=== PATIENT | male | born 1930 | race Caucasian/White ===

== ENCOUNTER 2021-01-26 11:59 | Inpatient (IN) | payer MEDICARE ==
[2021-01-26] MEDS ORDERED: Heparin 1,000 UNITS/ML VIAL ONE (12:43)
[2021-01-26 17:51] VITALS: BMI 23.6
[2021-01-26] MEDS ORDERED: hydrALAZINE 20 MG/ML VIAL SLOW IVP PRN (17:56)
[2021-01-26] MEDS ORDERED: Morphine 2 MG/ML VIAL SLOW IVP PRN (17:56)
[2021-01-26] MEDS ORDERED: Ondansetron ODT 4 MG TAB PO PRN (17:56)
[2021-01-26] MEDS ORDERED: Cyclobenzaprine 10 MG TAB PO PRN (17:59)
[2021-01-26] MEDS ORDERED: traMADol HCl 50 MG TAB PO PRN (17:59)
[2021-01-26] MEDS ORDERED: Furosemide 20 MG/2 ML VIAL SLOW IVP SCH ×2 (18:30→19:36)
[2021-01-26 18:33] LABS: #Lymphocytes 0.8 thou/uL (1.20-3.40); #Monocytes 0.7 thou/uL (0.11-0.59); #Neutrophils 4.4 thou/uL (1.40-6.50); %Basophils 0.6 % (0.0-1.0); %Eosinophils 0.6 % (0.0-10.0); %Lymphocytes 12.8 % (21.0-51.0); Hemoglobin 8.5 g/dL (14.0-18.0); Mean Corpuscular HGB CONC 33.2 g/dL (32.0-36.0); Mean Corpuscular Hemoglobin 35.6 pg (27.0-31.0); Mean Platelet Volume 6.4 fL (7.4-10.4); Platelet Count 290 thou/uL (130-400); RBC Distribution Width 11.9 % (11.5-14.5); Red Blood Cell (RBC) Count 2.38 mill/uL (4.70-6.10); White Blood Cell (WBC) Count 5.9 thou/uL (4.8-10.8)
[2021-01-26 18:37] LABS: Anion Gap 9 mmol/L (10-20); BUN (Urea Nitrogen) 22 mg/dL (8.4-25.7); CK (CPK) 27 U/L (30-200); Calc. Creatinine Clearance 43 mL/min (70-130); Carbon Dioxide 25 mmol/L (23-31); Chloride 102 mmol/L (98-107); Glucose 99 mg/dL (83-110); Magnesium 2.2 mg/dL (1.6-2.6); Phosphorus 2.5 mg/dL (2.3-4.7); Potassium 4.2 mmol/L (3.5-5.1); Sodium 132 mmol/L (136-145)
[2021-01-26 18:38] LABS: INR-International Normal Ratio 1.4
[2021-01-26 18:39] LABS: PTT 40.8 sec (22.9-36.1)
[2021-01-26] MEDS ORDERED: Ibuprofen 200 MG TAB PO PRN (18:47)
[2021-01-26 18:50] LABS: MDiff Complete? YES; Macrocytosis SLIGHT = 6-15 cells (100X) (0-5/hpf); Platelet Morphology Comment Appears Adequate
[2021-01-26] MEDS: Gabapentin 100 MG CAP PO SCH (20:18)
[2021-01-26] MEDS: Acetaminophen 325 MG TAB PO SCH (20:25)
[2021-01-26] MEDS: traMADol HCl 50 MG TAB PO SCH (20:25)
[2021-01-27] MEDS: traMADol HCl 50 MG TAB PO SCH ×4 (00:10→17:26)
[2021-01-27] MEDS: Acetaminophen 325 MG TAB PO SCH ×4 (00:11→17:26)
[2021-01-27] MEDS: Gabapentin 100 MG CAP PO SCH ×3 (08:35→20:45)
[2021-01-27] MEDS ORDERED: Famotidine 20 MG TAB PO SCH (09:00)
[2021-01-27] MEDS: Multivitamin W/ Minerals 1 TAB PO SCH (09:31)
[2021-01-27] MEDS: Ferrous Sulfate 325 MG TAB PO SCH (17:19)
[2021-01-27] MEDS ORDERED: Hydrocortisone Sod Succ/PF 100 mg/2 ml Vial IVP SCH (17:30)
[2021-01-27 18:00] LABS: Bacteria/HPF 3+ HPF (None Seen); Bilirubin Negative (Negative); Blood, Urine 3+ (Negative); Clarity Turbid (Clear); Glucose, Urine (Dipstick) Normal (Negative); Ketone, Urine Negative (Negative); Leukocyte 250 Leu/uL (Negative); Nitrite Negative (Negative); Protein, Urine (Dipstick) 30 mg/dL (Neg-Trace); RBC/HPF Greater than 50 HPF (0-3); Renal Epithelial 0-3 HPF (None Seen); Specific Gravity, Urine 1.033 (1.002-1.036); Squamous Epithelial 0-3 HPF (0-3); WBC/HPF Greater than 50 HPF (0-3); pH, Urine 5.5 (5.0-9.0)
[2021-01-27 18:04] LABS: Urine Culture Reflex Yes Yes
[2021-01-27] MEDS: Ascorbic Acid 500 mg Chewable Tablet PO SCH (20:45)
[2021-01-28] MEDS: Acetaminophen 325 MG TAB PO SCH ×4 (00:52→17:17)
[2021-01-28] MEDS: traMADol HCl 50 MG TAB PO SCH ×5 (00:52→23:49)
[2021-01-28] MEDS: Hydrocortisone Sod Succ/PF 100 mg/2 ml Vial IVP SCH ×3 (02:03→17:17)
[2021-01-28 05:55] LABS: #Lymphocytes 0.5 thou/uL (1.20-3.40); #Monocytes 0.1 thou/uL (0.11-0.59); #Neutrophils 4.7 thou/uL (1.40-6.50); %Eosinophils 0.1 % (0.0-10.0); %Lymphocytes 9.5 % (21.0-51.0); %Monocytes 2.6 % (0.0-10.0); %Neutrophils 87.8 % (42.0-75.0); Hemoglobin 9.4 g/dL (14.0-18.0); Mean Corpuscular HGB CONC 33.5 g/dL (32.0-36.0); Mean Corpuscular Hemoglobin 36.3 pg (27.0-31.0); Mean Platelet Volume 6.8 fL (7.4-10.4); Platelet Count 258 thou/uL (130-400); White Blood Cell (WBC) Count 5.3 thou/uL (4.8-10.8)
[2021-01-28 06:16] LABS: Anion Gap 12 mmol/L (10-20); BUN (Urea Nitrogen) 22 mg/dL (8.4-25.7); Calc. Creatinine Clearance 42 mL/min (70-130); Calcium 9.1 mg/dL (7.8-10.44); Carbon Dioxide 24 mmol/L (23-31); Chloride 103 mmol/L (98-107); Glucose 170 mg/dL (83-110); Magnesium 2.2 mg/dL (1.6-2.6); Phosphorus 3.7 mg/dL (2.3-4.7); Potassium 5.4 mmol/L (3.5-5.1); Sodium 134 mmol/L (136-145)
[2021-01-28] MEDS: Ferrous Sulfate 325 MG TAB PO SCH ×3 (08:12→21:02)
[2021-01-28] MEDS: Ascorbic Acid 500 mg Chewable Tablet PO SCH ×2 (08:13→21:01)
[2021-01-28] MEDS: Furosemide 20 MG TAB PO SCH (08:13)
[2021-01-28] MEDS: Pregabalin 50 MG CAP PO SCH ×2 (08:13→21:01)
[2021-01-28] MEDS: Multivitamin W/ Minerals 1 TAB PO SCH (08:13)
[2021-01-28] MEDS ORDERED: Enoxaparin Sodium 40 MG/0.4 ML SYRINGE SC SCH ×2 (09:00)
[2021-01-28] MEDS ORDERED: Furosemide 20 MG TAB PO SCH (09:00)
[2021-01-28 17:44] LABS: Anion Gap 10 mmol/L (10-20); BUN (Urea Nitrogen) 24 mg/dL (8.4-25.7); Calc. Creatinine Clearance 41 mL/min (70-130); Carbon Dioxide 27 mmol/L (23-31); Chloride 101 mmol/L (98-107); Glucose 145 mg/dL (83-110); Sodium 134 mmol/L (136-145)
[2021-01-28] MEDS ORDERED: traMADol HCl 50 MG TAB PO PRN (18:09)
[2021-01-28] MEDS ORDERED: Sodium Chloride 0.9% 500 ML IV SCH (18:15)
[2021-01-28] MEDS: Heparin 5,000 UNITS/ML VIAL SC SCH (21:00)
[2021-01-28] MEDS: Tamsulosin HCl 0.4 MG CAP PO SCH (21:01)
[2021-01-29] MEDS: Acetaminophen 325 MG TAB PO SCH ×4 (02:56→17:20)
[2021-01-29] MEDS: Hydrocortisone Sod Succ/PF 100 mg/2 ml Vial IVP SCH ×3 (03:00→17:20)
[2021-01-29] MEDS: traMADol HCl 50 MG TAB PO SCH ×2 (05:27→12:04)
[2021-01-29 06:01] LABS: Anion Gap 12 mmol/L (10-20); BUN (Urea Nitrogen) 23 mg/dL (8.4-25.7); Calc. Creatinine Clearance 39 mL/min (70-130); Calcium 8.9 mg/dL (7.8-10.44); Carbon Dioxide 24 mmol/L (23-31); Chloride 102 mmol/L (98-107); Glucose 137 mg/dL (83-110); Magnesium 2.1 mg/dL (1.6-2.6); Phosphorus 3.3 mg/dL (2.3-4.7); Potassium 4.3 mmol/L (3.5-5.1); Sodium 134 mmol/L (136-145)
[2021-01-29] MEDS: Furosemide 20 MG TAB PO SCH ×2 (08:44→21:03)
[2021-01-29] MEDS: Senokot S 8.6-50 MG TAB PO SCH ×2 (08:44→21:01)
[2021-01-29] MEDS: Polyethylene Glycol 3350 17 GM Packet PO SCH (08:44)
[2021-01-29] MEDS: Multivitamin W/ Minerals 1 TAB PO SCH (08:45)
[2021-01-29] MEDS: Ascorbic Acid 500 mg Chewable Tablet PO SCH ×2 (08:45→21:02)
[2021-01-29] MEDS: Heparin 5,000 UNITS/ML VIAL SC SCH ×3 (08:46→21:01)
[2021-01-29] MEDS: Pregabalin 50 MG CAP PO SCH ×2 (08:47→21:04)
[2021-01-29] MEDS: Ferrous Sulfate 325 MG TAB PO SCH ×2 (08:47→21:02)
[2021-01-29] MEDS: cefTRIAXone\\ROCEPHIN 2 GM in Sodium Chloride 0.9% 100 ML IVPB SCH (11:58)
[2021-01-29] MEDS: Vancomycin 1 GM in Premix Bag 1 BAG IVPB SCH (12:02)
[2021-01-29] MEDS: Acetaminophen/Codeine 30-300mg Tablet PO SCH ×2 (13:45→21:03)
[2021-01-29] MEDS: Tamsulosin HCl 0.4 MG CAP PO SCH (21:02)
[2021-01-30] MEDS: Acetaminophen 325 MG TAB PO SCH ×4 (00:33→17:41)
[2021-01-30] MEDS: Hydrocortisone Sod Succ/PF 100 mg/2 ml Vial IVP SCH ×3 (02:26→17:40)
[2021-01-30] MEDS: Acetaminophen/Codeine 30-300mg Tablet PO SCH ×4 (02:28→22:04)
[2021-01-30 08:19] LABS: Anion Gap 11 mmol/L (10-20); BUN (Urea Nitrogen) 25 mg/dL (8.4-25.7); Calc. Creatinine Clearance 39 mL/min (70-130); Calcium 9.2 mg/dL (7.8-10.44); Carbon Dioxide 27 mmol/L (23-31); Chloride 101 mmol/L (98-107); Glucose 131 mg/dL (83-110); Magnesium 2.1 mg/dL (1.6-2.6); Phosphorus 3.1 mg/dL (2.3-4.7); Potassium 5.9 mmol/L (3.5-5.1); Sodium 133 mmol/L (136-145)
[2021-01-30] MEDS ORDERED: Furosemide 20 MG TAB PO SCH (10:00)
[2021-01-30] MEDS: Multivitamin W/ Minerals 1 TAB PO SCH (10:24)
[2021-01-30] MEDS: Saccharomyces boulardii 250 MG CAP PO SCH (10:25)
[2021-01-30] MEDS: Pregabalin 50 MG CAP PO SCH (10:25)
[2021-01-30] MEDS: Ascorbic Acid 500 mg Chewable Tablet PO SCH ×2 (10:26→22:04)
[2021-01-30] MEDS: Ferrous Sulfate 325 MG TAB PO SCH (10:26)
[2021-01-30] MEDS: Heparin 5,000 UNITS/ML VIAL SC SCH ×3 (10:27→22:04)
[2021-01-30] MEDS: Senokot S 8.6-50 MG TAB PO SCH ×2 (10:27→22:04)
[2021-01-30] MEDS: Dutasteride 0.5 MG CAP PO SCH (10:30)
[2021-01-30 11:02] LABS: Anion Gap 15 mmol/L (10-20); BUN (Urea Nitrogen) 26 mg/dL (8.4-25.7); Calc. Creatinine Clearance 39 mL/min (70-130); Calcium 9.3 mg/dL (7.8-10.44); Carbon Dioxide 23 mmol/L (23-31); Chloride 100 mmol/L (98-107); Glucose 123 mg/dL (83-110); Potassium 5.4 mmol/L (3.5-5.1); Sodium 133 mmol/L (136-145)
[2021-01-30] MEDS: Furosemide 20 MG TAB PO SCH (11:22)
[2021-01-30] MEDS: cefTRIAXone\\ROCEPHIN 2 GM in Sodium Chloride 0.9% 100 ML IVPB SCH (12:37)
[2021-01-30] MEDS ORDERED: Dextrose 50% Abboject 50 ML SYRINGE SLOW IVP STA (13:19)
[2021-01-30] MEDS ORDERED: Insulin Regular 300 UNITS/3 ML VIAL IVP STA (13:19)
[2021-01-30] MEDS ORDERED: Sodium Chloride 0.9% 1,000 ML IV SCH (14:00)
[2021-01-30] MEDS: Vancomycin 1 GM in Premix Bag 1 BAG IVPB SCH (15:29)
[2021-01-30] MEDS: Sodium Chloride 0.9% 1,000 ML IV SCH (19:30)
[2021-01-30] MEDS ORDERED: Lactated Ringer's 1,000 ML IV SCH (20:00)
[2021-01-30] MEDS: Tamsulosin HCl 0.4 MG CAP PO SCH (22:04)
[2021-01-31] MEDS: Acetaminophen 325 MG TAB PO SCH ×4 (00:21→17:18)
[2021-01-31] MEDS: Acetaminophen/Codeine 30-300mg Tablet PO SCH ×4 (02:10→22:08)
[2021-01-31] MEDS: Hydrocortisone Sod Succ/PF 100 mg/2 ml Vial IVP SCH ×3 (02:11→17:18)
[2021-01-31 06:31] LABS: Anion Gap 9 mmol/L (10-20); BUN (Urea Nitrogen) 26 mg/dL (8.4-25.7); Calc. Creatinine Clearance 42 mL/min (70-130); Carbon Dioxide 27 mmol/L (23-31); Chloride 101 mmol/L (98-107); Glucose 117 mg/dL (83-110); Magnesium 2.1 mg/dL (1.6-2.6); Sodium 133 mmol/L (136-145)
[2021-01-31] MEDS: Heparin 5,000 UNITS/ML VIAL SC SCH ×3 (10:14→22:09)
[2021-01-31] MEDS: Multivitamin W/ Minerals 1 TAB PO SCH (10:14)
[2021-01-31] MEDS: Polyethylene Glycol 3350 17 GM Packet PO SCH (10:14)
[2021-01-31] MEDS: Saccharomyces boulardii 250 MG CAP PO SCH (10:15)
[2021-01-31] MEDS: Ascorbic Acid 500 mg Chewable Tablet PO SCH ×2 (10:15→22:09)
[2021-01-31] MEDS: Senokot S 8.6-50 MG TAB PO SCH ×2 (10:15→22:54)
[2021-01-31] MEDS: Furosemide 20 MG TAB PO SCH (10:15)
[2021-01-31] MEDS: Dutasteride 0.5 MG CAP PO SCH (10:20)
[2021-01-31] MEDS: cefTRIAXone\\ROCEPHIN 2 GM in Sodium Chloride 0.9% 100 ML IVPB SCH (12:05)
[2021-01-31] MEDS: Vancomycin 1 GM in Premix Bag 1 BAG IVPB SCH (14:37)
[2021-01-31] MEDS: Sodium Chloride 0.9% 1,000 ML IV SCH (18:35)
[2021-01-31] MEDS: Tamsulosin HCl 0.4 MG CAP PO SCH (22:09)
[2021-02-01] MEDS: Acetaminophen 325 MG TAB PO SCH ×4 (00:30→17:25)
[2021-02-01] MEDS: Sodium Chloride 0.9% 1,000 ML IV SCH ×2 (00:32→06:00)
[2021-02-01] MEDS: Hydrocortisone Sod Succ/PF 100 mg/2 ml Vial IVP SCH ×3 (02:10→17:22)
[2021-02-01] MEDS: Acetaminophen/Codeine 30-300mg Tablet PO SCH ×4 (03:17→20:46)
[2021-02-01 06:12] LABS: Anion Gap 10 mmol/L (10-20); BUN (Urea Nitrogen) 26 mg/dL (8.4-25.7); Calc. Creatinine Clearance 40 mL/min (70-130); Carbon Dioxide 26 mmol/L (23-31); Chloride 101 mmol/L (98-107); Sodium 132 mmol/L (136-145)
[2021-02-01 06:13] LABS: Glucose 131 mg/dL (83-110)
[2021-02-01] MEDS: Senokot S 8.6-50 MG TAB PO SCH ×2 (08:39→20:46)
[2021-02-01] MEDS: Ascorbic Acid 500 mg Chewable Tablet PO SCH ×2 (08:40→20:46)
[2021-02-01] MEDS: Multivitamin W/ Minerals 1 TAB PO SCH (08:40)
[2021-02-01] MEDS: Heparin 5,000 UNITS/ML VIAL SC SCH ×3 (08:40→20:53)
[2021-02-01] MEDS: Dutasteride 0.5 MG CAP PO SCH (08:40)
[2021-02-01] MEDS: Saccharomyces boulardii 250 MG CAP PO SCH (08:40)
[2021-02-01] MEDS: Polyethylene Glycol 3350 17 GM Packet PO SCH (08:41)
[2021-02-01] MEDS: cefTRIAXone\\ROCEPHIN 2 GM in Sodium Chloride 0.9% 100 ML IVPB SCH (10:50)
[2021-02-01] MEDS: Vancomycin 1 GM in Premix Bag 1 BAG IVPB SCH (12:37)
[2021-02-01] MEDS ORDERED: Sodium Chloride 0.9% 500 ML IV SCH (17:30)
[2021-02-01] MEDS: Tamsulosin HCl 0.4 MG CAP PO SCH (20:46)
[2021-02-02] MEDS: Acetaminophen 325 MG TAB PO SCH ×3 (00:37→11:02)
[2021-02-02] MEDS: Hydrocortisone Sod Succ/PF 100 mg/2 ml Vial IVP SCH ×2 (01:14→08:54)
[2021-02-02] MEDS: Acetaminophen/Codeine 30-300mg Tablet PO SCH ×3 (03:02→14:38)
[2021-02-02 06:02] LABS: Anion Gap 8 mmol/L (10-20); BUN (Urea Nitrogen) 23 mg/dL (8.4-25.7); Calc. Creatinine Clearance 46 mL/min (70-130); Carbon Dioxide 26 mmol/L (23-31); Chloride 102 mmol/L (98-107); Glucose 127 mg/dL (83-110); Magnesium 2.2 mg/dL (1.6-2.6); Phosphorus 2.8 mg/dL (2.3-4.7); Sodium 132 mmol/L (136-145)
[2021-02-02] MEDS: Dutasteride 0.5 MG CAP PO SCH (08:06)
[2021-02-02] MEDS: Ascorbic Acid 500 mg Chewable Tablet PO SCH (08:06)
[2021-02-02] MEDS: Saccharomyces boulardii 250 MG CAP PO SCH (08:06)
[2021-02-02] MEDS: Heparin 5,000 UNITS/ML VIAL SC SCH ×2 (08:06→14:38)
[2021-02-02] MEDS: Senokot S 8.6-50 MG TAB PO SCH (08:06)
[2021-02-02] MEDS: Multivitamin W/ Minerals 1 TAB PO SCH (08:06)
[2021-02-02] MEDS: Polyethylene Glycol 3350 17 GM Packet PO SCH (08:08)
[2021-02-02] MEDS: Furosemide 20 MG TAB PO SCH (08:09)
[2021-02-02] MEDS ORDERED: Aspirin 81 mg Enteric Coated Tablet PO SCH (09:00)
[2021-02-02] MEDS: cefTRIAXone\\ROCEPHIN 2 GM in Sodium Chloride 0.9% 100 ML IVPB SCH (11:02)
[2021-02-02 11:45] VITALS: BP 117/71; TEMP 97.7
[2021-02-02 13:36] LABS: Vancomycin, Trough 13.7 ug/mL
[2021-02-02] MEDS ORDERED: VANCOMYCIN 1.25 GM/250 ML BAG 1.25 GM in Premix Bag 1 BAG IVPB SCH (14:00)
[2021-02-02] MEDS: Vancomycin 1 GM in Premix Bag 1 BAG IVPB SCH (14:09)
== END 2021-02-02 14:48 | DRG 539 ==
LOC: SURG B 17:28
PROVIDERS: ADMIT Orthopaedic Surgery; ATTEND Surgery
PROC: 0T9B70Z Drainage of Bladder with Drainage Device, Via Natural or Artificial Opening (ICD-10-PCS; 2021-01-26)
PROC: 05H633Z Insertion of Infusion Device into Left Subclavian Vein, Percutaneous Approach (ICD-10-PCS; principal; 2021-01-29)
PROC: B5171ZA Fluoroscopy of Left Subclavian Vein using Low Osmolar Contrast, Guidance (ICD-10-PCS; 2021-01-29)
PROC: B547ZZA Ultrasonography of Left Subclavian Vein, Guidance (ICD-10-PCS; 2021-01-29)
DX: M46.26 Osteomyelitis of vertebra, lumbar region (principal); I50.23 Acute on chronic systolic (congestive) heart failure; N17.9 Acute kidney failure, unspecified; C95.91 Leukemia, unspecified, in remission; N39.0 Urinary tract infection, site not specified; Z20.822 Contact with and (suspected) exposure to COVID-19; E87.5 Hyperkalemia; I48.91 Unspecified atrial fibrillation; M48.061 Spinal stenosis, lumbar region without neurogenic claudication; R33.9 Retention of urine, unspecified; B96.20 Unspecified Escherichia coli [E. coli] as the cause of diseases classified elsewhere; M46.46 Discitis, unspecified, lumbar region; I08.3 Combined rheumatic disorders of mitral, aortic and tricuspid valves; Z79.899 Other long term (current) drug therapy; Z98.890 Other specified postprocedural states; Z88.0 Allergy status to penicillin; Z91.81 History of falling
CPT/HCPCS: 36415; 36569; 71045; 72131; 72158; 72195; 80048; 80202; 81001; 82533; 82550; 83735; 83880; 84100; 85025; 85610; 85730; 86140; 86850; 86900; 86901; 87040; 87077; 87086; 87186; 93306; C1751; J0696; J1644; J1650; J1720; J1815; J1940; J2270; J3370; J3490; J7030; J7050; P9045

== ENCOUNTER 2021-02-08 15:00 | Outpatient (CLI) | payer MEDICARE | END 2021-02-08 15:01 | disposition home or self-care (01) | LOC: ULT 15:00 | PROVIDERS: ATTEND Family Medicine | DX: Z03.89 Encounter for observation for other suspected diseases and conditions ruled out (principal); R60.0 Localized edema | CPT/HCPCS: 93970 ==

== ENCOUNTER → 2021-02-10 | Day surgery (SDC) | payer MEDICARE ==
[~2021-02-10] MED LIST: Heparin 1,000 UNITS/ML VIAL ONE
== END ==
LOC: SPEC 09:00
PROVIDERS: ATTEND Family Medicine
PROC: 02HV33Z Insertion of Infusion Device into Superior Vena Cava, Percutaneous Approach (ICD-10-PCS; principal; 2021-02-10)
DX: M86.9 Osteomyelitis, unspecified (principal); I82.291 Chronic embolism and thrombosis of other thoracic veins; I82.612 Acute embolism and thrombosis of superficial veins of left upper extremity; I82.622 Acute embolism and thrombosis of deep veins of left upper extremity; Z88.0 Allergy status to penicillin
CPT/HCPCS: 36569; C1751; J1644

== ENCOUNTER 2021-02-11 11:08 | Inpatient (IN) | payer MEDICARE ==
[2021-02-11] MEDS ORDERED: methylPREDNISolone Sod Succ/PF 125 MG/2 ML VIAL ONE (11:38)
[2021-02-11] MEDS ORDERED: Famotidine/PF 20 mg/2ml Vial ONE (11:38)
[2021-02-11] MEDS ORDERED: diphenhydrAMINE 50 MG/ML VIAL ONE (11:38)
[2021-02-11] MEDS ORDERED: EPINEPHrine 1 MG/10 ML Abboject SYRINGE ONE (11:38)
[2021-02-11] MEDS ORDERED: Norepinephrine 8 MG/0.9% NS 250 ML ONE (12:05)
[2021-02-11 12:45] LABS: Hemoglobin 9.5 g/dL (14.0-18.0); Mean Corpuscular HGB CONC 30.9 g/dL (32.0-36.0); Mean Corpuscular Hemoglobin 33.7 pg (27.0-31.0); Mean Platelet Volume 6.5 fL (7.4-10.4); Platelet Count 233 thou/uL (130-400); RBC Distribution Width 13.8 % (11.5-14.5); Red Blood Cell (RBC) Count 2.81 mill/uL (4.70-6.10); White Blood Cell (WBC) Count 15.9 thou/uL (4.8-10.8)
[2021-02-11 12:52] LABS: INR-International Normal Ratio 1.3; Prothrombin Time 15.9 sec (12.0-14.7)
[2021-02-11 13:00] LABS: Band 11 % (5-11); Eosinophils 2 % (0-10); Lymphocytes 6 % (21-51); MDiff Complete? YES; Macrocytosis SLIGHT = 6-15 cells (100X) (0-5/hpf); Monocytes 1 % (0-10); Neutrophil 79 % (42-75); Ovalocytes SLIGHT = 2-5 cells (100X) (0-1/hpf); Platelet Morphology Comment Appears Adequate; Polychromasia SLIGHT = 2-3 cells (100X) (0-2/hpf); Reactive Lymphocytes 1 % (0-10)
[2021-02-11 13:06] LABS: ALT (SGPT) 15 U/L (8-55); AST (SGOT) 26 U/L (5-34); Albumin 2.3 g/dL (3.4-4.8); Alkaline Phosphatase 245 U/L (40-110); Anion Gap 12 mmol/L (10-20); BUN (Urea Nitrogen) 31 mg/dL (8.4-25.7); Bilirubin, Total 0.6 mg/dL (0.2-1.2); CRP (Inflammatory) 14.97 mg/dL (= or < 0.5); Calc. Creatinine Clearance 0 mL/min (70-130); Calcium 8.4 mg/dL (7.8-10.44); Carbon Dioxide 23 mmol/L (23-31); Chloride 103 mmol/L (98-107); Globulin 2.5 g/dL (2.4-3.5); Glucose 82 mg/dL (83-110); Potassium 4.2 mmol/L (3.5-5.1); Protein, Total 4.8 g/dL (5.8-8.1); Sodium 134 mmol/L (136-145)
[2021-02-11] MEDS ORDERED: Cefepime 2 GM VIAL ONE (13:08)
[2021-02-11 13:22] LABS: CKMB 5.1 ng/mL (0-6.6)
[2021-02-11 14:35] LABS: Bilirubin Negative (Negative); Blood, Urine Negative (Negative); Clarity Clear (Clear); Glucose, Urine (Dipstick) Normal (Negative); Ketone, Urine Trace mg/dL (Negative); Leukocyte Negative Leu/uL (Negative); Nitrite Negative (Negative); Protein, Urine (Dipstick) 20 mg/dL (Neg-Trace); Specific Gravity, Urine 1.035 (1.002-1.036); Urobilinogen Normal mg/dL (Less than 2)
[2021-02-11] MEDS ORDERED: Norepinephrine 8 MG/0.9% NS 250 ML IVPB PRN (14:46)
[2021-02-11 15:27] LABS: Lactic Acid 1.7 mmol/L (0.5-2.2)
[2021-02-11] MEDS ORDERED: Dextrose 5 % And 0.9 % NaCl 1,000 ML IV SCH (15:30)
[2021-02-11] MEDS ORDERED: Acetaminophen 325 MG/10.15 ML UDCUP PO PRN (15:31)
[2021-02-11] MEDS ORDERED: Electrolyte Replacement Protocol 1 EACH IVPB ONE (15:31)
[2021-02-11] MEDS ORDERED: Ondansetron PF 4 MG/2 ML Vial IVP PRN (15:31)
[2021-02-11] MEDS ORDERED: Bisacodyl 10 MG SUPP PR PRN (15:31)
[2021-02-11] MEDS ORDERED: Calcium Carbonate 500 MG ChewTAB PO PRN (15:38)
[2021-02-11] MEDS ORDERED: Ondansetron ODT 4 MG TAB PO PRN (15:38)
[2021-02-11 16:03] LABS: SARS-CoV-2 NAA Rapid Test Not Detected (NotDetected)
[2021-02-11] MEDS ORDERED: Aspirin 81 mg Enteric Coated Tablet PO SCH (16:40)
[2021-02-11] MEDS ORDERED: Electrolyte Replacement Protocol FS PRN (17:00)
[2021-02-11] MEDS ORDERED: DAPTOmycin 500 MG VIAL SLOW IVP SCH (17:00)
[2021-02-11 17:36] LABS: Troponin I 0.127 ng/mL (< 0.028)
[2021-02-11] MEDS ORDERED: Aspirin Chewable 81 MG TAB ONE (17:39)
[2021-02-11] MEDS ORDERED: traMADol HCl 50 MG TAB PO PRN (17:43)
[2021-02-11] MEDS: Albumin 25% 25 GM/100 ML BOT IVPB SCH (17:58)
[2021-02-11] MEDS: Dextrose 5 % And 0.9 % NaCl 1,000 ML IV SCH (17:59)
[2021-02-11] MEDS: DAPTOmycin 500 MG in Sodium Chloride 0.9% 100 ML IVPB SCH (18:00)
[2021-02-11 18:03] LABS: Phosphorus 3.7 mg/dL (2.3-4.7)
[2021-02-11 18:05] LABS: Anion Gap 14 mmol/L (10-20); BUN (Urea Nitrogen) 31 mg/dL (8.4-25.7); Calc. Creatinine Clearance 0 mL/min (70-130); Calcium 8.9 mg/dL (7.8-10.44); Carbon Dioxide 19 mmol/L (23-31); Chloride 104 mmol/L (98-107); Glucose 105 mg/dL (83-110); Potassium 5.1 mmol/L (3.5-5.1); Sodium 132 mmol/L (136-145)
[2021-02-11] MEDS ORDERED: Magnesium 2 GM/50 ML 2 GM in Premix Bag 1 BAG IVPB SCH (21:00)
[2021-02-11 21:07] LABS: Troponin I 0.115 ng/mL (< 0.028)
[2021-02-11] MEDS ORDERED: Albumin 25% 25 GM/100 ML BOT IVPB SCH (22:00)
[2021-02-11] MEDS: Aztreonam 1 GM in Sodium Chloride 0.9% 100 ML IVPB SCH (22:09)
[2021-02-11] MEDS: Senokot S 8.6-50 MG TAB PO SCH (22:10)
[2021-02-11] MEDS: Saccharomyces boulardii 250 MG CAP PO SCH (22:10)
[2021-02-11] MEDS: Polyethylene Glycol 3350 17 GM Packet PO SCH (22:10)
[2021-02-12] MEDS: Albumin 25% 25 GM/100 ML BOT IVPB SCH ×2 (01:07→09:01)
[2021-02-12] MEDS: Aztreonam 1 GM in Sodium Chloride 0.9% 100 ML IVPB SCH ×2 (05:41→18:20)
[2021-02-12] MEDS: Dextrose 5 % And 0.9 % NaCl 1,000 ML IV SCH ×2 (05:43→09:01)
[2021-02-12] MEDS: Famotidine 20 MG TAB PO SCH (09:00)
[2021-02-12] MEDS: Senokot S 8.6-50 MG TAB PO SCH ×2 (09:00→21:25)
[2021-02-12] MEDS: Multivit, Therapeutic 1 TAB PO SCH (09:00)
[2021-02-12] MEDS: Aspirin 81 mg Enteric Coated Tablet PO SCH (09:00)
[2021-02-12] MEDS: Enoxaparin Sodium 30 MG/0.3 ML SYRINGE SC SCH (09:00)
[2021-02-12 09:57] LABS: ALT (SGPT) 17 U/L (8-55); AST (SGOT) 22 U/L (5-34); Alkaline Phosphatase 227 U/L (40-110); Anion Gap 19 mmol/L (10-20); BUN (Urea Nitrogen) 38 mg/dL (8.4-25.7); Bilirubin, Total 0.6 mg/dL (0.2-1.2); Calc. Creatinine Clearance 30 mL/min (70-130); Calcium 8.9 mg/dL (7.8-10.44); Carbon Dioxide 17 mmol/L (23-31); Chloride 105 mmol/L (98-107); Globulin 2.6 g/dL (2.4-3.5); Glucose 160 mg/dL (83-110); Potassium 4.3 mmol/L (3.5-5.1); Protein, Total 5.6 g/dL (5.8-8.1); Sodium 137 mmol/L (136-145)
[2021-02-12 10:16] LABS: Hemoglobin 9.2 g/dL (14.0-18.0); Mean Corpuscular HGB CONC 31.1 g/dL (32.0-36.0); Mean Corpuscular Hemoglobin 33.9 pg (27.0-31.0); Mean Platelet Volume 6.7 fL (7.4-10.4); Platelet Count 245 thou/uL (130-400); Red Blood Cell (RBC) Count 2.72 mill/uL (4.70-6.10); White Blood Cell (WBC) Count 15.6 thou/uL (4.8-10.8)
[2021-02-12 10:17] LABS: Band 4 % (5-11); Hypochromia SLIGHT = 6-15 cells (100X) (0-5/hpf); Lymphocytes 4 % (21-51); MDiff Complete? YES; Macrocytosis SLIGHT = 6-15 cells (100X) (0-5/hpf); Monocytes 1 % (0-10); Neutrophil 90 % (42-75); Platelet Morphology Comment Appears Adequate
[2021-02-12] MEDS ORDERED: Sodium Bicarbonate 150 MEQ in Dextrose 5% in Water 1,000 ML IV SCH (11:15)
[2021-02-12] MEDS: Polyethylene Glycol 3350 17 GM Packet PO SCH (21:26)
[2021-02-12] MEDS: Saccharomyces boulardii 250 MG CAP PO SCH (21:26)
[2021-02-12] MEDS: Lidocaine 5% Patch TD SCH (21:37)
[2021-02-13] MEDS: Aztreonam 1 GM in Sodium Chloride 0.9% 100 ML IVPB SCH ×3 (04:50→15:59)
[2021-02-13] MEDS: Multivit, Therapeutic 1 TAB PO SCH (08:55)
[2021-02-13] MEDS: Senokot S 8.6-50 MG TAB PO SCH ×2 (08:55→20:28)
[2021-02-13] MEDS: Aspirin 81 mg Enteric Coated Tablet PO SCH (08:55)
[2021-02-13] MEDS: Famotidine 20 MG TAB PO SCH (08:55)
[2021-02-13] MEDS: Enoxaparin Sodium 30 MG/0.3 ML SYRINGE SC SCH (08:56)
[2021-02-13] MEDS: Transdermal Patch Removal TOP SCH (09:04)
[2021-02-13] MEDS: Albumin 25% 25 GM/100 ML BOT IVPB SCH ×2 (11:14→21:04)
[2021-02-13 15:39] LABS: #Lymphocytes 1.1 thou/uL (1.20-3.40); #Monocytes 1.1 thou/uL (0.11-0.59); #Neutrophils 10.8 thou/uL (1.40-6.50); %Basophils 0.2 % (0.0-1.0); %Eosinophils 0.1 % (0.0-10.0); %Lymphocytes 8.3 % (21.0-51.0); %Monocytes 8.2 % (0.0-10.0); %Neutrophils 83.1 % (42.0-75.0); Hemoglobin 9.1 g/dL (14.0-18.0); Mean Corpuscular HGB CONC 32.9 g/dL (32.0-36.0); Mean Corpuscular Hemoglobin 35.4 pg (27.0-31.0); Mean Platelet Volume 6.5 fL (7.4-10.4); Platelet Count 201 thou/uL (130-400); RBC Distribution Width 14.3 % (11.5-14.5); Red Blood Cell (RBC) Count 2.57 mill/uL (4.70-6.10)
[2021-02-13 15:58] LABS: Magnesium 2.4 mg/dL (1.6-2.6); Phosphorus 3.1 mg/dL (2.3-4.7)
[2021-02-13 16:00] LABS: ALT (SGPT) 18 U/L (8-55); AST (SGOT) 27 U/L (5-34); Albumin 3.1 g/dL (3.4-4.8); Alkaline Phosphatase 218 U/L (40-110); Anion Gap 13 mmol/L (10-20); BUN (Urea Nitrogen) 42 mg/dL (8.4-25.7); Bilirubin, Total 0.6 mg/dL (0.2-1.2); Calc. Creatinine Clearance 34 mL/min (70-130); Calcium 9.8 mg/dL (7.8-10.44); Carbon Dioxide 21 mmol/L (23-31); Chloride 104 mmol/L (98-107); Glucose 138 mg/dL (83-110); Protein, Total 6.1 g/dL (5.8-8.1); Sodium 134 mmol/L (136-145)
[2021-02-13] MEDS: DAPTOmycin 500 MG in Sodium Chloride 0.9% 100 ML IVPB SCH (17:22)
[2021-02-13] MEDS: Lidocaine 5% Patch TD SCH (20:26)
[2021-02-13] MEDS: Polyethylene Glycol 3350 17 GM Packet PO SCH (20:27)
[2021-02-13] MEDS: Saccharomyces boulardii 250 MG CAP PO SCH (20:30)
[2021-02-14] MEDS: Aztreonam 1 GM in Sodium Chloride 0.9% 100 ML IVPB SCH ×2 (04:01→16:07)
[2021-02-14] MEDS: Albumin 25% 25 GM/100 ML BOT IVPB SCH ×2 (05:18→14:02)
[2021-02-14 05:54] LABS: Albumin 3.1 g/dL (3.4-4.8); Anion Gap 14 mmol/L (10-20); BUN (Urea Nitrogen) 40 mg/dL (8.4-25.7); BUN/Creatinine Ratio 27.78; Calc. Creatinine Clearance 44 mL/min (70-130); Calcium 9.8 mg/dL (7.8-10.44); Carbon Dioxide 19 mmol/L (23-31); Chloride 105 mmol/L (98-107); Glucose 105 mg/dL (83-110); Magnesium 2.3 mg/dL (1.6-2.6); Phosphorus 2.7 mg/dL (2.3-4.7); Potassium 4.4 mmol/L (3.5-5.1); Sodium 134 mmol/L (136-145)
[2021-02-14] MEDS ORDERED: Spironolactone 25 MG TAB PO SCH (08:15)
[2021-02-14] MEDS ORDERED: Torsemide 20 MG TAB PO SCH (09:00)
[2021-02-14] MEDS: Multivit, Therapeutic 1 TAB PO SCH (09:16)
[2021-02-14] MEDS: Aspirin 81 mg Enteric Coated Tablet PO SCH (09:16)
[2021-02-14] MEDS: Senokot S 8.6-50 MG TAB PO SCH ×2 (09:16→21:46)
[2021-02-14] MEDS: Transdermal Patch Removal TOP SCH (09:16)
[2021-02-14] MEDS: Famotidine 20 MG TAB PO SCH (09:16)
[2021-02-14] MEDS: Sodium Bicarbonate Tab 325 MG TAB PO SCH ×2 (09:16→21:45)
[2021-02-14] MEDS: Enoxaparin Sodium 30 MG/0.3 ML SYRINGE SC SCH (09:17)
[2021-02-14] MEDS ORDERED: Sodium Bicarbonate 150 MEQ in Dextrose 5% in Water 1,000 ML IV SCH (10:15)
[2021-02-14 10:47] LABS: Hemoglobin 8.9 g/dL (14.0-18.0); Mean Corpuscular HGB CONC 31.9 g/dL (32.0-36.0); Mean Corpuscular Hemoglobin 34.1 pg (27.0-31.0); Mean Platelet Volume 6.9 fL (7.4-10.4); Platelet Count 193 thou/uL (130-400); RBC Distribution Width 14.4 % (11.5-14.5); Red Blood Cell (RBC) Count 2.59 mill/uL (4.70-6.10)
[2021-02-14 12:03] LABS: Anisocytosis SLIGHT = 6-15 cells (100X) (0-5/hpf); Eosinophils 1 % (0-10); Lymphocytes 9 % (21-51); MDiff Complete? YES; Monocytes 10 % (0-10); Neutrophil 80 % (42-75); Platelet Morphology Comment Appears Adequate; Polychromasia SLIGHT = 2-3 cells (100X) (0-2/hpf); Vacuoles SLIGHT
[2021-02-14] MEDS: Lidocaine 5% Patch TD SCH (21:45)
[2021-02-14] MEDS: Saccharomyces boulardii 250 MG CAP PO SCH (21:45)
[2021-02-14] MEDS: Polyethylene Glycol 3350 17 GM Packet PO SCH (21:45)
[2021-02-14] MEDS: Acetaminophen 325 MG TAB PO PRN (21:46)
[2021-02-15] MEDS: Aztreonam 1 GM in Sodium Chloride 0.9% 100 ML IVPB SCH ×2 (06:09→16:58)
[2021-02-15] MEDS: Senokot S 8.6-50 MG TAB PO SCH ×2 (09:22→21:24)
[2021-02-15] MEDS: Sodium Bicarbonate Tab 325 MG TAB PO SCH ×2 (09:22→21:24)
[2021-02-15] MEDS: Famotidine 20 MG TAB PO SCH (09:23)
[2021-02-15] MEDS: Aspirin 81 mg Enteric Coated Tablet PO SCH (09:23)
[2021-02-15] MEDS: Multivit, Therapeutic 1 TAB PO SCH (09:23)
[2021-02-15] MEDS: Enoxaparin Sodium 30 MG/0.3 ML SYRINGE SC SCH (09:23)
[2021-02-15] MEDS: Transdermal Patch Removal TOP SCH (10:21)
[2021-02-15 10:36] LABS: #Basophils 0.1 thou/uL (0.0-0.2); #Eosinphils 0.2 thou/uL (0.0-0.7); #Lymphocytes 0.8 thou/uL (1.20-3.40); #Monocytes 0.6 thou/uL (0.11-0.59); #Neutrophils 5.7 thou/uL (1.40-6.50); %Basophils 0.7 % (0.0-1.0); %Eosinophils 3.2 % (0.0-10.0); %Lymphocytes 10.8 % (21.0-51.0); %Monocytes 8.6 % (0.0-10.0); %Neutrophils 76.7 % (42.0-75.0); Hemoglobin 8.5 g/dL (14.0-18.0); Mean Corpuscular Hemoglobin 35.7 pg (27.0-31.0); Mean Platelet Volume 6.7 fL (7.4-10.4); Platelet Count 166 thou/uL (130-400); RBC Distribution Width 14.5 % (11.5-14.5); Red Blood Cell (RBC) Count 2.37 mill/uL (4.70-6.10); White Blood Cell (WBC) Count 7.4 thou/uL (4.8-10.8)
[2021-02-15 11:03] LABS: ALT (SGPT) 19 U/L (8-55); AST (SGOT) 23 U/L (5-34); Albumin 3.2 g/dL (3.4-4.8); Alkaline Phosphatase 188 U/L (40-110); Anion Gap 14 mmol/L (10-20); BUN (Urea Nitrogen) 37 mg/dL (8.4-25.7); Bilirubin, Total 1.1 mg/dL (0.2-1.2); Calc. Creatinine Clearance 43 mL/min (70-130); Calcium 9.4 mg/dL (7.8-10.44); Carbon Dioxide 26 mmol/L (23-31); Chloride 108 mmol/L (98-107); Globulin 2.6 g/dL (2.4-3.5); Glucose 133 mg/dL (83-110); Protein, Total 5.8 g/dL (5.8-8.1); Sodium 144 mmol/L (136-145)
[2021-02-15 11:36] LABS: Phosphorus 2.2 mg/dL (2.3-4.7)
[2021-02-15] MEDS: DAPTOmycin 500 MG in Sodium Chloride 0.9% 100 ML IVPB SCH (17:05)
[2021-02-15] MEDS: Polyethylene Glycol 3350 17 GM Packet PO SCH ×2 (21:23→21:24)
[2021-02-15] MEDS: Saccharomyces boulardii 250 MG CAP PO SCH (21:24)
[2021-02-15] MEDS: Lidocaine 5% Patch TD SCH (21:25)
[2021-02-16] MEDS: Aztreonam 1 GM in Sodium Chloride 0.9% 100 ML IVPB SCH ×2 (04:40→16:44)
[2021-02-16 05:04] LABS: #Eosinphils 0.2 thou/uL (0.0-0.7); #Lymphocytes 0.8 thou/uL (1.20-3.40); #Monocytes 0.6 thou/uL (0.11-0.59); %Basophils 0.3 % (0.0-1.0); %Eosinophils 3.2 % (0.0-10.0); %Lymphocytes 10.1 % (21.0-51.0); %Monocytes 7.8 % (0.0-10.0); %Neutrophils 78.7 % (42.0-75.0); Hemoglobin 8.6 g/dL (14.0-18.0); Mean Corpuscular HGB CONC 33.2 g/dL (32.0-36.0); Mean Corpuscular Hemoglobin 35.5 pg (27.0-31.0); Mean Platelet Volume 6.9 fL (7.4-10.4); Platelet Count 186 thou/uL (130-400); Red Blood Cell (RBC) Count 2.42 mill/uL (4.70-6.10); White Blood Cell (WBC) Count 7.6 thou/uL (4.8-10.8)
[2021-02-16 05:28] LABS: ALT (SGPT) 20 U/L (8-55); AST (SGOT) 24 U/L (5-34); Albumin 3.1 g/dL (3.4-4.8); Alkaline Phosphatase 184 U/L (40-110); Anion Gap 13 mmol/L (10-20); BUN (Urea Nitrogen) 35 mg/dL (8.4-25.7); Bilirubin, Total 1.4 mg/dL (0.2-1.2); Calc. Creatinine Clearance 49 mL/min (70-130); Calcium 9.5 mg/dL (7.8-10.44); Carbon Dioxide 25 mmol/L (23-31); Chloride 108 mmol/L (98-107); Globulin 2.9 g/dL (2.4-3.5); Glucose 111 mg/dL (83-110); Potassium 4.1 mmol/L (3.5-5.1); Sodium 142 mmol/L (136-145)
[2021-02-16 07:10] LABS: Phosphorus 2.4 mg/dL (2.3-4.7)
[2021-02-16] MEDS: Sodium Bicarbonate Tab 325 MG TAB PO SCH ×2 (09:14→20:56)
[2021-02-16] MEDS: Aspirin 81 mg Enteric Coated Tablet PO SCH (09:15)
[2021-02-16] MEDS: Multivit, Therapeutic 1 TAB PO SCH (09:15)
[2021-02-16] MEDS: Famotidine 20 MG TAB PO SCH (09:15)
[2021-02-16] MEDS: Senokot S 8.6-50 MG TAB PO SCH ×2 (09:15→20:56)
[2021-02-16] MEDS: Enoxaparin Sodium 40 MG/0.4 ML SYRINGE SC SCH (09:16)
[2021-02-16] MEDS: Transdermal Patch Removal TOP SCH (09:16)
[2021-02-16 13:03] LABS: Iron 35 ug/dL (65-175); Iron Binding Capacity, Total 136 mcg/dL (261-462)
[2021-02-16] MEDS: Acetaminophen 325 MG TAB PO PRN (20:56)
[2021-02-16] MEDS: Polyethylene Glycol 3350 17 GM Packet PO SCH (20:56)
[2021-02-16] MEDS: Saccharomyces boulardii 250 MG CAP PO SCH (21:30)
[2021-02-17] MEDS: Aztreonam 1 GM in Sodium Chloride 0.9% 100 ML IVPB SCH (03:45)
[2021-02-17] MEDS: Lidocaine 5% Patch TD SCH ×2 (05:39→20:39)
[2021-02-17 08:52] LABS: #Eosinphils 0.3 thou/uL (0.0-0.7); #Lymphocytes 0.9 thou/uL (1.20-3.40); #Monocytes 0.6 thou/uL (0.11-0.59); #Neutrophils 6.2 thou/uL (1.40-6.50); %Basophils 0.4 % (0.0-1.0); %Eosinophils 3.2 % (0.0-10.0); %Lymphocytes 11.7 % (21.0-51.0); %Monocytes 7.4 % (0.0-10.0); %Neutrophils 77.3 % (42.0-75.0); Hemoglobin 9.1 g/dL (14.0-18.0); Mean Corpuscular Hemoglobin 34.2 pg (27.0-31.0); Mean Platelet Volume 7.4 fL (7.4-10.4); Platelet Count 244 thou/uL (130-400); RBC Distribution Width 15.4 % (11.5-14.5); Red Blood Cell (RBC) Count 2.66 mill/uL (4.70-6.10)
[2021-02-17 09:11] LABS: ALT (SGPT) 18 U/L (8-55); AST (SGOT) 26 U/L (5-34); Alkaline Phosphatase 171 U/L (40-110); Anion Gap 15 mmol/L (10-20); BUN (Urea Nitrogen) 31 mg/dL (8.4-25.7); Bilirubin, Total 1.3 mg/dL (0.2-1.2); Calc. Creatinine Clearance 58 mL/min (70-130); Calcium 9.4 mg/dL (7.8-10.44); Carbon Dioxide 22 mmol/L (23-31); Chloride 111 mmol/L (98-107); Glucose 98 mg/dL (83-110); Potassium 4.1 mmol/L (3.5-5.1); Sodium 144 mmol/L (136-145)
[2021-02-17] MEDS: Transdermal Patch Removal TOP SCH (09:40)
[2021-02-17] MEDS: Aspirin 81 mg Enteric Coated Tablet PO SCH (10:19)
[2021-02-17] MEDS: Sodium Bicarbonate Tab 325 MG TAB PO SCH ×2 (10:19→20:39)
[2021-02-17] MEDS: Senokot S 8.6-50 MG TAB PO SCH ×2 (10:19→20:39)
[2021-02-17] MEDS: Enoxaparin Sodium 40 MG/0.4 ML SYRINGE SC SCH (10:20)
[2021-02-17] MEDS: Multivit, Therapeutic 1 TAB PO SCH (10:20)
[2021-02-17] MEDS: Famotidine 20 MG TAB PO SCH (10:20)
[2021-02-17] MEDS ORDERED: Spironolactone 25 MG TAB PO SCH (11:45)
[2021-02-17] MEDS ORDERED: Torsemide 10 MG TAB PO SCH (11:45)
[2021-02-17] MEDS: Albumin 25% 25 GM/100 ML BOT IVPB SCH ×2 (13:27→22:07)
[2021-02-17] MEDS: Aztreonam 2 GM in Sodium Chloride 0.9% 100 ML IVPB SCH (16:54)
[2021-02-17] MEDS: DAPTOmycin 700 MG in Sodium Chloride 0.9% 100 ML IVPB SCH (18:09)
[2021-02-17] MEDS: Saccharomyces boulardii 250 MG CAP PO SCH (20:39)
[2021-02-18] MEDS: Aztreonam 2 GM in Sodium Chloride 0.9% 100 ML IVPB SCH ×4 (00:21→23:50)
[2021-02-18] MEDS: Albumin 25% 25 GM/100 ML BOT IVPB SCH ×2 (05:02→14:32)
[2021-02-18 05:27] LABS: #Basophils 0.1 thou/uL (0.0-0.2); #Eosinphils 0.3 thou/uL (0.0-0.7); #Lymphocytes 0.9 thou/uL (1.20-3.40); #Monocytes 0.7 thou/uL (0.11-0.59); #Neutrophils 6.2 thou/uL (1.40-6.50); %Eosinophils 3.2 % (0.0-10.0); %Lymphocytes 10.9 % (21.0-51.0); %Monocytes 8.1 % (0.0-10.0); %Neutrophils 76.9 % (42.0-75.0); Hemoglobin 8.4 g/dL (14.0-18.0); Mean Corpuscular HGB CONC 31.9 g/dL (32.0-36.0); Mean Corpuscular Hemoglobin 35.5 pg (27.0-31.0); Mean Platelet Volume 7.4 fL (7.4-10.4); Platelet Count 295 thou/uL (130-400); RBC Distribution Width 15.6 % (11.5-14.5); Red Blood Cell (RBC) Count 2.36 mill/uL (4.70-6.10)
[2021-02-18 05:50] LABS: ALT (SGPT) 16 U/L (8-55); AST (SGOT) 20 U/L (5-34); Albumin 3.3 g/dL (3.4-4.8); Alkaline Phosphatase 153 U/L (40-110); Anion Gap 13 mmol/L (10-20); BUN (Urea Nitrogen) 29 mg/dL (8.4-25.7); Bilirubin, Total 1.2 mg/dL (0.2-1.2); Calc. Creatinine Clearance 51 mL/min (70-130); Calcium 9.5 mg/dL (7.8-10.44); Carbon Dioxide 28 mmol/L (23-31); Chloride 112 mmol/L (98-107); Globulin 2.9 g/dL (2.4-3.5); Glucose 115 mg/dL (83-110); Potassium 3.9 mmol/L (3.5-5.1); Protein, Total 6.2 g/dL (5.8-8.1); Sodium 149 mmol/L (136-145)
[2021-02-18] MEDS: Senokot S 8.6-50 MG TAB PO SCH ×2 (09:35→20:36)
[2021-02-18] MEDS: Famotidine 20 MG TAB PO SCH (09:35)
[2021-02-18] MEDS: Aspirin 81 mg Enteric Coated Tablet PO SCH (09:35)
[2021-02-18] MEDS: Sodium Bicarbonate Tab 325 MG TAB PO SCH ×2 (09:35→20:36)
[2021-02-18] MEDS: Multivit, Therapeutic 1 TAB PO SCH (09:35)
[2021-02-18] MEDS: Enoxaparin Sodium 40 MG/0.4 ML SYRINGE SC SCH (09:36)
[2021-02-18] MEDS: Transdermal Patch Removal TOP SCH (09:40)
[2021-02-18] MEDS ORDERED: Spironolactone 25 MG TAB PO SCH (09:45)
[2021-02-18] MEDS: Metolazone 2.5 MG TAB PO SCH (10:13)
[2021-02-18] MEDS: DAPTOmycin 700 MG in Sodium Chloride 0.9% 100 ML IVPB SCH (18:29)
[2021-02-18] MEDS: Lidocaine 5% Patch TD SCH (20:36)
[2021-02-18] MEDS: Saccharomyces boulardii 250 MG CAP PO SCH (20:36)
[2021-02-18] MEDS: Polyethylene Glycol 3350 17 GM Packet PO SCH (20:36)
[2021-02-19 06:43] LABS: #Basophils 0.1 thou/uL (0.0-0.2); #Eosinphils 0.2 thou/uL (0.0-0.7); #Monocytes 0.8 thou/uL (0.11-0.59); #Neutrophils 6.6 thou/uL (1.40-6.50); %Basophils 1.7 % (0.0-1.0); %Eosinophils 1.9 % (0.0-10.0); %Lymphocytes 11.3 % (21.0-51.0); %Neutrophils 76.2 % (42.0-75.0); Hemoglobin 8.4 g/dL (14.0-18.0); Mean Corpuscular HGB CONC 31.5 g/dL (32.0-36.0); Mean Corpuscular Hemoglobin 35.3 pg (27.0-31.0); Mean Platelet Volume 7.3 fL (7.4-10.4); Platelet Count 338 thou/uL (130-400); RBC Distribution Width 15.9 % (11.5-14.5); Red Blood Cell (RBC) Count 2.37 mill/uL (4.70-6.10); White Blood Cell (WBC) Count 8.7 thou/uL (4.8-10.8)
[2021-02-19 07:05] LABS: ALT (SGPT) 18 U/L (8-55); AST (SGOT) 21 U/L (5-34); Albumin 3.6 g/dL (3.4-4.8); Alkaline Phosphatase 145 U/L (40-110); Anion Gap 13 mmol/L (10-20); BUN (Urea Nitrogen) 31 mg/dL (8.4-25.7); Bilirubin, Total 1.3 mg/dL (0.2-1.2); Calc. Creatinine Clearance 49 mL/min (70-130); Calcium 9.7 mg/dL (7.8-10.44); Carbon Dioxide 27 mmol/L (23-31); Chloride 116 mmol/L (98-107); Globulin 2.8 g/dL (2.4-3.5); Glucose 108 mg/dL (83-110); Magnesium 2.5 mg/dL (1.6-2.6); Phosphorus 2.9 mg/dL (2.3-4.7); Protein, Total 6.4 g/dL (5.8-8.1); Sodium 151 mmol/L (136-145)
[2021-02-19] MEDS: Enoxaparin Sodium 40 MG/0.4 ML SYRINGE SC SCH (08:35)
[2021-02-19] MEDS: Aztreonam 2 GM in Sodium Chloride 0.9% 100 ML IVPB SCH ×2 (08:35→16:59)
[2021-02-19] MEDS: Aspirin 81 mg Enteric Coated Tablet PO SCH (08:36)
[2021-02-19] MEDS: Spironolactone 25 MG TAB PO SCH (08:36)
[2021-02-19] MEDS: Sodium Bicarbonate Tab 325 MG TAB PO SCH ×2 (08:36→22:04)
[2021-02-19] MEDS: Multivit, Therapeutic 1 TAB PO SCH (08:36)
[2021-02-19] MEDS: Famotidine 20 MG TAB PO SCH (08:36)
[2021-02-19] MEDS: Senokot S 8.6-50 MG TAB PO SCH ×2 (08:36→21:47)
[2021-02-19] MEDS: Metolazone 2.5 MG TAB PO SCH (08:37)
[2021-02-19] MEDS: Transdermal Patch Removal TOP SCH (08:37)
[2021-02-19] MEDS: Dextrose 5% in Water 1,000 ML IV SCH (14:05)
[2021-02-19 14:31] VITALS: BMI 25.9
[2021-02-19 18:20] LABS: Anion Gap 13 mmol/L (10-20); BUN (Urea Nitrogen) 31 mg/dL (8.4-25.7); Calc. Creatinine Clearance 51 mL/min (70-130); Calcium 9.9 mg/dL (7.8-10.44); Carbon Dioxide 26 mmol/L (23-31); Chloride 113 mmol/L (98-107); Glucose 125 mg/dL (83-110); Sodium 148 mmol/L (136-145)
[2021-02-19] MEDS: DAPTOmycin 700 MG in Sodium Chloride 0.9% 100 ML IVPB SCH (18:25)
[2021-02-19] MEDS: Polyethylene Glycol 3350 17 GM Packet PO SCH (21:47)
[2021-02-19] MEDS: Lidocaine 5% Patch TD SCH (22:05)
[2021-02-19] MEDS: Saccharomyces boulardii 250 MG CAP PO SCH (22:05)
[2021-02-19 23:55] LABS: SARS-CoV-2 PCR by NAA Not Detected (NotDetected)
[2021-02-20] MEDS: Aztreonam 2 GM in Sodium Chloride 0.9% 100 ML IVPB SCH ×4 (00:57→23:55)
[2021-02-20] MEDS: Dextrose 5% in Water 1,000 ML IV SCH ×3 (04:30→19:51)
[2021-02-20 07:00] LABS: Anion Gap 13 mmol/L (10-20); BUN (Urea Nitrogen) 28 mg/dL (8.4-25.7); Calc. Creatinine Clearance 52 mL/min (70-130); Calcium 9.3 mg/dL (7.8-10.44); Carbon Dioxide 27 mmol/L (23-31); Chloride 113 mmol/L (98-107); Glucose 132 mg/dL (83-110); Magnesium 2.3 mg/dL (1.6-2.6); Phosphorus 2.4 mg/dL (2.3-4.7); Potassium 3.6 mmol/L (3.5-5.1); Sodium 149 mmol/L (136-145)
[2021-02-20] MEDS: Spironolactone 25 MG TAB PO SCH (09:09)
[2021-02-20] MEDS: Sodium Bicarbonate Tab 325 MG TAB PO SCH (09:10)
[2021-02-20] MEDS: Multivit, Therapeutic 1 TAB PO SCH (09:10)
[2021-02-20] MEDS: Senokot S 8.6-50 MG TAB PO SCH ×2 (09:11→21:49)
[2021-02-20] MEDS: Enoxaparin Sodium 40 MG/0.4 ML SYRINGE SC SCH (09:11)
[2021-02-20] MEDS: Aspirin 81 mg Enteric Coated Tablet PO SCH (09:12)
[2021-02-20] MEDS: Transdermal Patch Removal TOP SCH (09:12)
[2021-02-20] MEDS: Famotidine 20 MG TAB PO SCH (09:12)
[2021-02-20 13:44] LABS: Anion Gap 14 mmol/L (10-20); BUN (Urea Nitrogen) 28 mg/dL (8.4-25.7); Calc. Creatinine Clearance 55 mL/min (70-130); Calcium 9.6 mg/dL (7.8-10.44); Carbon Dioxide 27 mmol/L (23-31); Chloride 111 mmol/L (98-107); Glucose 126 mg/dL (83-110); Potassium 4.8 mmol/L (3.5-5.1); Sodium 147 mmol/L (136-145)
[2021-02-20] MEDS: DAPTOmycin 700 MG in Sodium Chloride 0.9% 100 ML IVPB SCH (17:00)
[2021-02-20] MEDS: Polyethylene Glycol 3350 17 GM Packet PO SCH (21:50)
[2021-02-20] MEDS: Lidocaine 5% Patch TD SCH (21:50)
[2021-02-20] MEDS: Saccharomyces boulardii 250 MG CAP PO SCH (21:51)
[2021-02-21] MEDS: Dextrose 5% in Water 1,000 ML IV SCH ×2 (06:17→15:37)
[2021-02-21] MEDS: Aztreonam 2 GM in Sodium Chloride 0.9% 100 ML IVPB SCH ×2 (09:06→15:26)
[2021-02-21] MEDS: Transdermal Patch Removal TOP SCH (09:07)
[2021-02-21] MEDS: Aspirin 81 mg Enteric Coated Tablet PO SCH (09:07)
[2021-02-21] MEDS: Spironolactone 25 MG TAB PO SCH (09:07)
[2021-02-21] MEDS: Multivit, Therapeutic 1 TAB PO SCH (09:07)
[2021-02-21] MEDS: Famotidine 20 MG TAB PO SCH (09:07)
[2021-02-21] MEDS: Enoxaparin Sodium 40 MG/0.4 ML SYRINGE SC SCH (09:08)
[2021-02-21] MEDS: Senokot S 8.6-50 MG TAB PO SCH ×2 (09:08→22:02)
[2021-02-21 09:26] LABS: Anion Gap 15 mmol/L (10-20); BUN (Urea Nitrogen) 24 mg/dL (8.4-25.7); Calc. Creatinine Clearance 63 mL/min (70-130); Calcium 8.1 mg/dL (7.8-10.44); Carbon Dioxide 21 mmol/L (23-31); Chloride 111 mmol/L (98-107); Glucose 94 mg/dL (83-110); Potassium 3.8 mmol/L (3.5-5.1); Sodium 143 mmol/L (136-145)
[2021-02-21] MEDS: DAPTOmycin 700 MG in Sodium Chloride 0.9% 100 ML IVPB SCH (17:10)
[2021-02-21] MEDS: Saccharomyces boulardii 250 MG CAP PO SCH (22:02)
[2021-02-21] MEDS: Polyethylene Glycol 3350 17 GM Packet PO SCH (22:02)
[2021-02-21] MEDS: Lidocaine 5% Patch TD SCH (22:02)
[2021-02-22] MEDS: Dextrose 5% in Water 1,000 ML IV SCH (01:53)
[2021-02-22] MEDS: Aztreonam 2 GM in Sodium Chloride 0.9% 100 ML IVPB SCH ×2 (01:53→09:39)
[2021-02-22 06:33] LABS: Anion Gap 9 mmol/L (10-20); BUN (Urea Nitrogen) 20 mg/dL (8.4-25.7); Calc. Creatinine Clearance 68 mL/min (70-130); Calcium 9.1 mg/dL (7.8-10.44); Carbon Dioxide 28 mmol/L (23-31); Chloride 108 mmol/L (98-107); Glucose 100 mg/dL (83-110); Potassium 3.7 mmol/L (3.5-5.1); Sodium 141 mmol/L (136-145)
[2021-02-22 08:24] VITALS: BP 132/76; TEMP 97.8
[2021-02-22] MEDS ORDERED: Torsemide 10 MG TAB PO SCH (09:00)
[2021-02-22] MEDS: Enoxaparin Sodium 40 MG/0.4 ML SYRINGE SC SCH (09:37)
[2021-02-22] MEDS: Famotidine 20 MG TAB PO SCH (09:41)
[2021-02-22] MEDS: Spironolactone 25 MG TAB PO SCH (09:43)
[2021-02-22] MEDS: Senokot S 8.6-50 MG TAB PO SCH (09:43)
[2021-02-22] MEDS: Aspirin 81 mg Enteric Coated Tablet PO SCH (09:44)
[2021-02-22] MEDS: Multivit, Therapeutic 1 TAB PO SCH (09:44)
[2021-02-22] MEDS: Transdermal Patch Removal TOP SCH (09:52)
== END 2021-02-22 12:59 | DRG 871 ==
LOC: ERS 11:08 → ERHOLD 15:10 → 2NO 19:16 → SURG B 02-16 12:31
PROVIDERS: ADMIT Internal Medicine; ATTEND Internal Medicine
PROC: 3E033XZ Introduction of Vasopressor into Peripheral Vein, Percutaneous Approach (ICD-10-PCS; principal; 2021-02-11)
DX: A41.9 Sepsis, unspecified organism (principal); R65.21 Severe sepsis with septic shock; I21.A1 Myocardial infarction type 2; S32.041A Stable burst fracture of fourth lumbar vertebra, initial encounter for closed fracture; C95.90 Leukemia, unspecified not having achieved remission; M46.26 Osteomyelitis of vertebra, lumbar region; I50.32 Chronic diastolic (congestive) heart failure; N17.9 Acute kidney failure, unspecified; N39.0 Urinary tract infection, site not specified; E87.1 Hypo-osmolality and hyponatremia; G93.40 Encephalopathy, unspecified; E87.0 Hyperosmolality and hypernatremia; Z51.5 Encounter for palliative care; Z66 Do not resuscitate; Z20.822 Contact with and (suspected) exposure to COVID-19; M46.46 Discitis, unspecified, lumbar region; N18.30 Chronic kidney disease, stage 3 unspecified; M54.5 Low back pain; G89.29 Other chronic pain; X58.XXXA Exposure to other specified factors, initial encounter; D63.1 Anemia in chronic kidney disease; I48.0 Paroxysmal atrial fibrillation; Z88.0 Allergy status to penicillin; Z98.42 Cataract extraction status, left eye; Z98.41 Cataract extraction status, right eye; Z98.890 Other specified postprocedural states; Z79.82 Long term (current) use of aspirin; Z79.899 Other long term (current) drug therapy; Z88.1 Allergy status to other antibiotic agents; E83.39 Other disorders of phosphorus metabolism; R13.10 Dysphagia, unspecified; R00.1 Bradycardia, unspecified
CPT/HCPCS: 36415; 36416; 36569; 51701; 71045; 74177; 74230; 76705; 80048; 80053; 80069; 80202; 81003; 82140; 82553; 82570; 82607; 82728; 82746; 83540; 83550; 83605; 83690; 83735; 83880; 84100; 84443; 84484; 85025; 85610; 85652; 86140; 87040; 87086; 93005; 93306; 93970; 94760; 96365; 96366; 96367; 96375; C1751; J0171; J0692; J0878; J1200; J1650; J2930; J3490; J7042; J7070; P9047; S0028; U0002; U0003; U0005

== ENCOUNTER → 2021-02-24 | Day surgery (SDC) | payer MEDICARE | LOC: SPEC 10:30 | PROVIDERS: ATTEND Family Medicine | PROC: 02HV33Z Insertion of Infusion Device into Superior Vena Cava, Percutaneous Approach (ICD-10-PCS; principal; 2021-02-24) | DX: M46.26 Osteomyelitis of vertebra, lumbar region (principal); I87.1 Compression of vein; Z88.0 Allergy status to penicillin; Z88.1 Allergy status to other antibiotic agents | CPT/HCPCS: 36569; C1751; J1644 ==

== ENCOUNTER 2021-03-04 11:17 | Emergency (ER) | payer MEDICARE ==
[2021-03-04 13:08] LABS: Hemoglobin 8.9 g/dL (14.0-18.0)
== END 2021-03-04 14:30 | disposition home or self-care (01) ==
LOC: ERS 11:17
DX: T82.838A Hemorrhage due to vascular prosthetic devices, implants and grafts, initial encounter (principal); I50.9 Heart failure, unspecified; Z79.899 Other long term (current) drug therapy
CPT/HCPCS: 36415; 85014; 85018; 99283